=== PATIENT | male | born 1950 | race Caucasian/White ===

== ENCOUNTER 2018-07-16 06:14 | Inpatient (IN) | payer OTHER, SELFPAY ==
[2018-07-07 10:41] VITALS: BMI 34.7
[2018-07-16] VITALS (16 sets, daily range): BP systolic 115–158; BP diastolic 62–91; PULSE 61–93; RESP 14–20; TEMP 36.2–37.4; O2SAT 16–97; BMI 34.7
--- NOTE | 2018-07-16 06:00 | DI.RAD.S_ITS ---
PROCEDURE: XR KNEE RT 1TO2V INDICATIONS: post op right TKA TECHNIQUE: 2 view(s) of the knee acquired. COMPARISON: [facility], , KNEE 1-2 VIEWS LEFT, 06/03/2016, 14:38. FINDINGS: Bones: Patient is status post knee joint arthroplasty. Hardware components are in expected positions. Visualized bony structures are intact. Soft tissues: Overlying postoperative changes are noted. IMPRESSION: Post right total knee arthroplasty changes with anatomic bony alignment. Dictated by: John Beauchamp M.D. on 07/16/2018 at 11:56 Approved by: John Beauchamp M.D. on 07/16/2018 at 11:56
[2018-07-16] MEDS: PREGABALIN 75 MG CAPSULE PO (07:03)
[2018-07-16] MEDS: ACETAMINOPHEN 325 MG TABLET 975 MG PO ×3 (07:03→21:51)
[2018-07-16] MEDS: VANCOMYCIN 1,000 MG/200 ML FROZ.PIGGY 200 MG IV (07:04)
[2018-07-16] MEDS: LACTATED RINGERS 1,000 ML 42 ML IV ×2 (07:04→10:22)
--- NOTE | 2018-07-16 07:36 | PM.PREOP ---
Pre-operative Note Interval Note History & Physical reviewed/Exam performed by Physician: Yes Changes to H&P: No
--- NOTE | 2018-07-16 07:36 | PM.OP.1 ---
Operative Date/Time/Diagnoses Date of procedure: 07/16/18 Time of procedure: 07:59 Pre-op diagnosis: right knee lateral OA, h/o medial uni Post-op diagnosis: same Procedure & Clinicians Procedure: revision right total knee Same procedure as scheduled: Yes Indications: The patient has had progressively worsening right knee pain with radiographic changes consistent with progressive patellofemoral and lateral compartment arthritis with a history of previous unicompartment arthroplasty. Non-operative management has failed and the patient has requested revision total knee replacement. The risks, benefits and alternatives to surgery were discussed with the patient prior to proceeding. Risks discussed included, but were not limited to, failure to relieve pain, stiffness, infection, nerve damage, deep venous thrombosis, pulmonary embolism, stroke, coma, heart attack, permanent paralysis and , as well as the potential need for eventual revision of the prosthetic. Surgeon: Haven Pires Ice Cutter: Salinas Astorga Anesthesia Type: General and Spinal Operative Notes Findings: Severe right knee lateral compartment arthritis and medial compartment arthritis, no evidence of infection or medial compartment arthroplasty loosening Closure Type: primary Specimen(s): none sent Prosthetic devices, grafts, tissues, transplants, or devices: [facility] BCS 2 size 7 femur, size 6 tibia, +11 poly, 38 oval patella Applied: catheter Estimated Blood Loss (mL): 250 Blood products transfused: none Tourniquet time (min): 135 Procedure in detail: The patient was seen in the pre-operative area, where the patient identified the right knee as the operative site and this was marked with my initials. The patient received pre-operative antibiotics, and was taken to the operating room and placed on the operative table in the supine position. After satisfactory anesthesia, a time study engineer out was performed. The right leg was encircled with a tourniquet about the proximal thigh, and the leg was prepared from the toes to the tourniquet with ChloroPrep in the usual fashion and draped through sterile drapes. The leg was elevated and exsanguinated with Eschmark bandage and the tourniquet inflated to [250] mmHg pressure. The knee was approached through an approximately 20 cm incision centered over the patella and carried into the knee through a medial parapatellar arthrotomy. A portion of the medial scar and lateral meniscus was resected. Soft tissue was carefully mobilized around the patella the patella was measured with a caliper. Bone was resected from the patella and the patellar height was reconstituted with up an appropriate sized patellar component. An oval patella was selected. A cover was then placed on the patella. A small amount of additional medial scar and lateral meniscus was resected. The distal femur was cut at 5?. A [+2] cut was used. It looked like an appropriate distal femoral cut. The femoral medial compartment arthroplasty was then carefully removed without difficulty. Combination of the TPS and small knee revision chisels were used to remove the component with minimal bone loss. Intraoperative cultures of the synovium, distal femur and deep femur were sent to the lab for culture and sensitivity. An extramedullary guide was used for the tibial cut. 11 mm was resected off the lateral side. The tibia was prepared. The rotation was assessed. The patient was placed in extension residual medial and lateral meniscus as well as any residual bone was carefully resected. Hemostasis was achieved especially posteriorly. Additional local was injected into the posterior capsule. The extension gap was assessed and additional releases for gap balancing were performed as necessary. It was checked with the gap mainframe systems engineer. The rotation was meticulously assessed and the femur was sized. I check rotation and compensated for some missing posterior bone. The appropriate size femoral guide was placed on the distal femur and finishing cuts were made. There was no evidence of notching. The anterior, posterior and chamfer cuts were then made. The posterior osteophytes and soft tissues were then removed. The posterior capsule was injected with part of a mixture of 60 ml 0.25% Marcaine mixed with 20 ml Exparel for post operative pain control. The remainder of this mixture was injected into the capsule and subcutaneous tissues during cement curing. The tibial and femoral components were then placed and the knee placed through a range of motion. Range of motion was [0-130], with good stability throughout the range. The trials were then removed, and the tibia was finished. A small residual tibial poly fin was removed. The bone was prepared with pulsatile lavage, and dried with a sponge. Cement was applied and the final prosthetics placed. Excess cement was removed during and after cement curing. It was difficult to sublux the tibia anteriorly but was done with anterior translation. A brief Betadine soak was performed. After confirming there was no extruded cement posteriorly, the final tibial insert was placed. An 11 poly showed full rom and good stability. The knee was copiously irrigated and the tourniquet deflated. Hemostasis was obtained with the [Aquamantys system]. A drain was placed and brought out superolaterally. The capsule was closed with interrupted nonabsorbable suture. The subcutaneous layer was closed with barbed sutures, and the skin with a running 3-0 V-Lock suture and Surgical glue. An Aquacel Ag dressing was applied and the patient was taken to recovery having tolerated the procedure well. Complications: none Condition: stable Disposition: Acute Care Plan for aftercare: The patient will be maintained on a standard total knee replacement protocol with weight bearing as tolerated. The patient will receive Aspirin and sequential compression devices for DVT prophylaxis. The patient will be discharged home when safe for the home environment.
[2018-07-16] MEDS: CELECOXIB 200 MG CAPSULE PO (07:38)
[2018-07-16] MEDS: CEFAZOLIN 2 GM/100 ML FROZ.PIGGY IV ×3 (08:00→23:57)
[2018-07-16] MEDS: TRANEXAMIC ACID 1,000 MG VIAL 2000 MG INJ ×2 (08:16→10:43)
--- NOTE | 2018-07-16 08:35 | SUR.OPER ---
Supine on padded OR bed. Pillow under head, arms secured on padded armboards <90 degree abduction. Safety belt across torso. Non-operative leg secured with tape over blanket over lower leg. Operative leg secured in DeMayo/Ronnell positioner. Foam padded brace at thigh of operative leg.
[2018-07-16] MEDS: BUPIVACAINE LIPOSOME 266 MG/20 ML VIAL INJ (09:03)
[2018-07-16] MEDS: BUPIVACAINE 0.25% W/ EPI 30 ML VIAL 60 ML INJ (09:03)
[2018-07-16] MEDS: POVIDONE-IODINE 15 ML, SODIUM CHLORIDE 0.9% 250 ML TOP (09:04)
[2018-07-16] MEDS: LACTATED RINGERS 1,000 ML 125 ML IV ×2 (12:52→22:00)
--- NOTE | 2018-07-16 14:03 | PT.IIE ---
Current Diagnoses Unilateral primary osteoarthritis, right knee (07/16/18) Pain due to internal orthopedic prosthetic devices, implants and grafts, initial encounter (07/16/18) Surgery Performed Operation Date: 07/16/18 07:45 Actual Procedures p Uni medial to Total knee replacement,femoral & entire tibial component(Right) - Haven Pires MD Surgical History (Last Updated 07/07/18 @ 11:02 by Sara Raymundo RN) H/O vasectomy (Acute) History of arthroplasty of left knee (Acute 06/03/16) History of arthroplasty of right knee (Acute) History of carpal tunnel release (Acute) History of colonoscopy (Acute) History of hydrocelectomy (Acute) Hx of transurethral resection of prostate (Acute) S/P cervical spinal fusion (Acute ~07/2012) S/P trigger finger release (Acute) Status post repair of hydrocele (Acute) Medical History (Last Updated 07/07/18 @ 11:02 by Sara Raymundo RN) Arthritis (Acute) BPH (benign prostatic hyperplasia) (Acute) Chronic neck and back pain (Acute) Diabetes mellitus, type II (Acute) Diverticulitis (Acute) Erectile dysfunction (Acute) Former smoker (Acute) HLD (hyperlipidemia) (Acute) NOME (hard of hearing) (Acute) HTN (hypertension) (Acute) Impaired vision (Acute) Persistent headaches (Acute) Prostatitis (Acute) RBBB (right bundle branch block) (Acute) Tinnitus (Acute) Physical Therapy Inpatient Evaluation/Re-Eval M1 PT/OT-IP Prior Functional Status Start: 07/16/18 15:18 Freq: NEEDED Status: Active Protocol: Document 07/16/18 14:03 AB (Rec: 07/16/18 15:32 AB [id number]) Medical Review Prior Functional Status Medical History Reviewed Yes Communication pt able to make needs known Mobility and Gait pt stated that he is independent with all mobilities and ambulation without AD but uses a SPC for long distance ambulation Social History Household Members spouse Living Arrangements House Number of Floors (Floors) One Floor Number of Stairs To Enter/Railing? 1 step to enter 1 step to the sunken living room Home Environment High Toilet Walk in Shower Built-In Shower Seat Home Equipment Front Wheel Walker Four Wheel Walker Straight Cane Manual Wheelchair Hand Held Shower Grab Bars In Shower Employment Status Retired Additional Social History Comment 20 y/o grand daughter will stay with pt to assist him while spouse is off at work pt has a adjustable bed M2 PT-IP Current Condition Start: 07/16/18 15:18 Freq: NEEDED Status: Active Protocol: Document 07/16/18 14:03 AB (Rec: 07/16/18 15:32 AB [id number]) Physical Therapy Current Condition Current Condition Evaluation Date 07/16/18 Treatment Diagnosis s/p R TKA revision; difficulty in walking Onset Date 07/16/18 Weight Bearing Status Weight Bearing Status Weight Bear as Tolerated M3 PT-IP Subjective Start: 07/16/18 15:18 Freq: NEEDED Status: Active Protocol: Document 07/16/18 14:03 AB (Rec: 07/16/18 15:32 AB [id number]) Subjective Physical Therapy Visit Type Type Initial Evaluation Visit Start Time 14:03 Visit Stop Time 14:42 Total Visit Minutes 39 Number of SUPERVISOR GARAGE Visits 0 Physical Therapy Visit Comments Patient Comments pt agreed to do PT Therapy Pain Assessment Pain Present Pain Present Denied Pain M4 PT-IP Mobility and Gait Start: 07/16/18 15:18 Freq: NEEDED Status: Active Protocol: Document 07/16/18 14:03 AB (Rec: 07/16/18 15:32 AB [id number]) PT-Bed Mobility Assessment Supine to Sit Supine to Sit Standby Assistance Head of Bed Elevated Sit to Supine Sit to Supine Standby Assistance Head of Bed Elevated Scooting Scooting to Edge of Bed Standby Assistance PT-Transfer Assessment Sit to and From Stand Sit to and from Stand Contact Guard Assistance 1 Person Assistance Equipment Transfer Assistive Device Gait Belt Front Wheeled Walker Orthotic/Prosthetic Devices or Brace: No Comments Mobility Comments pt wanted to urinate but does not want to walk all the way to the toilet. completed sit to stand from EOB CGA and was able to maintain standing CGA while using urinal. Gait Assessment Gait Gait Assistance Required: Contact Guard Assist Distance (Feet) 20 Able to Maintain Weight Bearing Status Yes During Gait Assistive Devices Assistive Device Gait Belt Front Wheeled Walker Orthotic/Prosthetic Devices or Brace: No Gait Deviations General Gait Pattern Antalgic Decreased Stride Length Decreased Feet Clearance Factors Limiting Gait Function Factors Limiting Gait Function Decreased Activity Tolerance Decreased Sensation Decreased Strength Limited Range of Motion Pain Poor Balance Poor Safety Awareness Comments Gait Comments pt ambulated 20+5 ft using FWW CGA and cues. c/o dizziness and increase sweating. BP 138 /66 PT-Balance Assessment Sitting Balance and Reactions Static Sitting Balance Ability Good Dynamic Sitting Balance Ability Good Standing Balance and Reactions Static Standing Balance Ability Fair Dynamic Standing Balance Ability Fair Device Used FWW M5 PT-IP Objective Assessments Start: 07/16/18 15:18 Freq: NEEDED Status: Active Protocol: Document 07/16/18 14:03 AB (Rec: 07/16/18 15:32 AB [id number]) Orientation Orientation/Cognition Level of Alertness Alert Orientation Name Situation Language Function Ability No Deficits Noted Gross Range of Motion Lower Extremity ROM Impairments R knee flexion: ~ 90 deg Strength Lower Extremity Strength Assessment Right Impaired Hip 4-/5 Knee 3+/5 Coordination Assessment Gross Coordination Gross Coordination WNL Sensation Assessment Sensation Sensation Description Numbness Comments Sensation Comments c/o RLE numbness but able to control LE Muscle Tone Muscle Tone WNL Yes M6 PT-IP Treatment Start: 07/16/18 15:18 Freq: NEEDED Status: Active Protocol: Document 07/16/18 14:03 AB (Rec: 07/16/18 15:32 AB [id number]) Physical Therapy Treatment Exercises Exercises Heel Slides Education Education Provided Precautions M7 PT-IP Assessment and Plan Start: 07/16/18 15:18 Freq: NEEDED Status: Active Protocol: Document 07/16/18 14:03 AB (Rec: 07/16/18 15:32 AB [id number]) PT Summary Assessment and Plan Potential Rehabilitation Potential Good Status of Condition at Evaluation Stable Summary Impairments Pain ROM Strength Balance Coordination Sensation Bed Mobility Transfers Gait Activity Tolerance Assessment Summary pt requiring CGA with mobility but unable to tolerate much activity today. pt plans to go home with spouse to assist. will conduct caregiver training when appropriate and stair training. Goals Bed Mobility Goal Independent Transfer Goal Standby Assistance Front Wheeled Walker Gait Goal Independent Standby Assistance Front Wheel Walker Gait Distance 200 Other Goals up/down 1 step using FWW SBA Days to Meet Goals 3 Frequency of Treatment Frequency Of Treatment Twice a Day Treatment Plan Physical Therapy Treatment Plan Bed Mobility Training Transfer Training Gait Training Therapeutic Exercise Balance Retraining Post Op Education Discharge Planning Hot or Cold Pack Neuromuscular Re-ed Coordination Retraining Manual Therapy Recommendations To Nursing Amount of Assist Needed 1 Person Assist Discharge Recommendations PT Discharge Recommendations Home with Assistance Outpatient PT
[2018-07-16] MEDS: hydrOXYzine pamoate 25 MG CAPSULE PO (14:53)
[2018-07-16] MEDS: ONDANSETRON 4 MG/2 ML INJ IV (17:45)
[2018-07-16] MEDS: NALOXONE 0.4 MG/ML VIAL IV (18:13)
[2018-07-16] MEDS: DOCUSATE 100 MG CAPSULE PO (21:51)
[2018-07-16] MEDS: ASPIRIN EC 81 MG TABLET PO (21:51)
[2018-07-16] MEDS: METFORMIN XR 500 MG TABLET 1000 MG PO (21:51)
[2018-07-17 04:49] VITALS: BP 115/71; PULSE 76; RESP 18; TEMP 37.4; O2SAT 96
[2018-07-17 05:26] LABS: Hematocrit 36.9 % (41-53); Hemoglobin 12.1 g/dL (13.5-17.5)
--- NOTE | 2018-07-17 05:48 | PC.NURSE ---
Slept most of the shift, denies any pain all shift. Will cont. POC & monitor.
[2018-07-17] MEDS: LACTATED RINGERS 1,000 ML 125 ML IV (06:42)
[2018-07-17 07:24] VITALS: BP 121/63; PULSE 70; RESP 18; TEMP 37.2; O2SAT 96
[2018-07-17] MEDS: DOCUSATE 100 MG CAPSULE PO (09:19)
[2018-07-17] MEDS: GLIMEPIRIDE 2 MG TABLET PO (09:19)
[2018-07-17] MEDS: ASPIRIN EC 81 MG TABLET PO (09:19)
[2018-07-17] MEDS: TAMSULOSIN 0.4 MG CAPSULE PO (09:19)
[2018-07-17] MEDS: METFORMIN XR 500 MG TABLET 1000 MG PO (09:19)
[2018-07-17] MEDS: LOSARTAN 25 MG TABLET 50 MG PO (09:19)
[2018-07-17] MEDS: hydroCHLOROthiazide 12.5 MG CAPSULE PO (09:19)
[2018-07-17] MEDS: ACETAMINOPHEN 325 MG TABLET 975 MG PO ×2 (09:20→14:39)
--- NOTE | 2018-07-17 09:35 | PC.NURSE ---
Addendum entered by Katie Walsh R.N. 07/17/18 12:40: bladder scanned pt. Pre-void 222ml, post void bladder scan resulted with 44ml. pt states he feels like his bladder isn't empty, but this isn't a new condition and his urologist is tracking. Addendum entered by Katie Walsh R.N. 07/17/18 12:02: Worked with PT in room and hallway. pt stated his pain increased to a 6-7/10 and refusing Dilaudid. Administered 1 visteril and PA ordered oxycodone. Addendum entered by Katie Walsh R.N. 07/17/18 10:38: pt reporting mild numbness in right toes, PA removed HALEIGH wrap in hopes it will resolve. pt states, It feels like they are trying to wake up and denies issues with balance. pt up to BR SBA with FWW, but unsuccessful in having a BM, only passing gas so far. Original Note: AM Shift pt AO and receptive to care. CBG at 0800 was 159, pt is PO DM medications only with no coverage. Saline locked, hemo vac removed, and Harman removed. Patient tolerated all well. 1000ml in Harman. 25ml in Hemovac. Ample PO fluid intake. Reportin 0-3/10 pain and utilizing Tylenol this shift for pain management. Up SBA with FWW to BR. Passing gas, denying dizziness with mild lightheadedness; which passes with slow repositioning.
--- NOTE | 2018-07-17 10:07 | PM.DS.1 ---
History of Present Illness Date Patient Seen: 07/17/18 Time Patient Seen: 10:07 Chief complaint: [id number] Narrative: HPI in chart Discharge Providers Date of admission: 07/16/18 06:14 Discharge Date: 07/17/18 Primary care physician: REMY Olivier Consults: 07/16/18 06:00 Consult to Anesthesiology Routine Comment: Consulting Provider: Anesthesiologist Reason for consultation: Regional block for post operative pain control 07/16/18 12:26 Consult to Discharge Planning Routine Comment: Consult to Physical Therapy Evaluate & Treat Comment: Physician Instructions: postop TKA protocol Consult to Respiratory Therapy Evaluate & Treat Comment: Physician Instructions: Evaluate and treat Discharge provider: Kristy Mendez PA-C Summary Discharge Diagnosis: s/p revision right total knee arthroplasty Hospital Course: he patient has had progressively worsening right knee pain with radiographic changes consistent with progressive patellofemoral and lateral compartment arthritis with a history of previous unicompartment arthroplasty. Non-operative management has failed and the patient has requested revision total knee replacement. The risks, benefits and alternatives to surgery were discussed with the patient prior to proceeding. Risks discussed included, but were not limited to, failure to relieve pain, stiffness, infection, nerve damage, deep venous thrombosis, pulmonary embolism, stroke, coma, heart attack, permanent paralysis and , as well as the potential need for eventual revision of the prosthetic. He has been doing well on POD#1. Pain has been well controlled. He has ambulated about the room but has not yet worked with PT. Harman catheter was removed this morning and he has yet to void. Prescriptions for oxycodone and vistaril given at time of discharge. He has good support at home. Plan at this time is to discharge to home if he continues to move well with physical therapy and is able to void independently. Status at Discharge Cognitive/behavioral status at discharge: oriented Functional status at discharge: uses cane/walker Overall status at discharge: patient is progressing back to baseline Exam Vital Signs (past 8 hours): - 07/17/18 04:49 07/17/18 07:24 Temperature 99.3 F 99.0 F Pulse Rate 76 70 Respiratory Rate 18 18 Blood Pressure 115/71 121/63 Pulse Oximetry 96 96 Oxygen Delivery Method Nasal Cannula Oxygen Flow Rate 0 Narrative Exam Narrative: 67 year old male resting comfortably in bed. Alert and oriented in no acute distress. Dressing in place is clean, dry, and intact. Small area of drainage at base of incision. Neurovascularly intact in distal extremity with soft compressible calves. Objective Labs Result Diagrams: 07/17/18 05:10 Labs: Laboratory Results - last 24 hr 07/17/18 05:10 Hgb 12.1 L Hct 36.9 L Discharge Plan Discharge Plan Patient Disposition: Home Discharge comment: Discharge to home if cleared by PT and able to void Discharge Med Rec/Prescriptions Prescriptions: New acetaminophen 325 mg Tablet 975 mg PO TID Qty: 60 RF: 0 aspirin 81 mg Tablet,Delayed Release (Dr/Ec) 81 mg PO BID Qty: 60 RF: 0 oxycodone 5 mg Tablet 5 mg PO Q4-6H PRN (Reason: Pain, Moderate (4-6)) Qty: 30 RF: 0 hydroxyzine pamoate 25 mg Capsule 25 mg PO Q4HR PRN (Reason: Itching) Qty: 30 RF: 0 Continued losartan 25 MG tablet 50 mg PO QDAY Qty: 0 RF: 0 lovastatin 40 MG tablet 40 mg PO QPM Qty: 0 RF: 0 hydrochlorothiazide 25 MG tablet 12.5 mg PO QDAY Qty: 0 RF: 0 metformin [Glucophage XR] 500 MG tablet extended release 24 hr 1,000 mg PO BID Qty: 0 RF: 0 glimepiride 2 MG tablet 2 mg PO DAILY Qty: 0 RF: 0 tamsulosin [Flomax] 0.4 MG capsule,extended release 24hr 0.4 mg PO QDAY Qty: 0 RF: 0 aspirin 81 MG tablet,delayed release (DR/EC) 81 mg PO DAILY RF: 0 sildenafil [Viagra] 100 mg Tablet 100 mg PO DAILY PRN (Reason: Sexual Activity) RF: 0 Follow up/Referrals: Karishma Swartz ARNP [Primary Care Provider] - Haven Pires MD [Physician] - Provider Discharge Instructions Diet: Diet as Tolerated Activity: Weight bear as tolerated. Use walker for support. Recommend frequent short walks and ankle pumps. Cold/Heat Therapy: Ice packs as needed. Skin/Wound/Dressing Care Report to your healthcare provider any signs of infection, such as:: chills, fever, unusual drainage and unusual redness Dressing: Leave dressing in place. Will be removed at 2 week post operative visit. Visit Report/Discharge Packet Instructions: DI for Knee Replacement Discharge Data Primary Care Provider: Karishma Swartz Attending Provider: Haven Pires Admit Date/Time: 07/16/18 06:14
--- NOTE | 2018-07-17 11:10 | PT.IPTN ---
Current Diagnoses Unilateral primary osteoarthritis, right knee (07/16/18) Pain due to internal orthopedic prosthetic devices, implants and grafts, initial encounter (07/16/18) Surgery Performed Operation Date: 07/16/18 07:45 Actual Procedures p Uni medial to Total knee replacement,femoral & entire tibial component(Right) - Haven Pires MD Physical Therapy Treatment Note M2 PT-IP Current Condition Start: 07/16/18 15:18 Freq: NEEDED Status: Active Protocol: Document 07/16/18 14:03 AB (Rec: 07/16/18 15:32 AB [id number]) Physical Therapy Current Condition Current Condition Evaluation Date 07/16/18 Treatment Diagnosis s/p R TKA revision; difficulty in walking Onset Date 07/16/18 Weight Bearing Status Weight Bearing Status Weight Bear as Tolerated M3 PT-IP Subjective Start: 07/16/18 15:18 Freq: NEEDED Status: Active Protocol: Document 07/17/18 11:10 AB (Rec: 07/17/18 13:08 AB [email or web address]) Subjective Physical Therapy Visit Type Type Treatment Note Visit Start Time 11:10 Visit Stop Time 11:39 Total Visit Minutes 29 Number of MACHINING TECHNICIAN Visits 0 Physical Therapy Visit Comments Patient Comments pt agreeable to do PT Therapy Pain Assessment Pain When Pain Assessed At Rest Pain Present Pain Present Pain Reported Location Right Knee Intensity 3 Scale Used increased to 8/10 with movement Pain Management Techniques Apply Cold Re-positioning M4 PT-IP Mobility and Gait Start: 07/16/18 15:18 Freq: NEEDED Status: Active Protocol: Document 07/17/18 11:10 AB (Rec: 07/17/18 13:08 AB [email or web address]) PT-Bed Mobility Assessment Supine to Sit Supine to Sit Standby Assistance Scooting Scooting to Edge of Bed Standby Assistance PT-Transfer Assessment Sit to and From Stand Sit to and from Stand Standby Assistance Equipment Transfer Assistive Device Gait Belt Front Wheeled Walker Orthotic/Prosthetic Devices or Brace: No Transfers Transfer Destination Chair Transfer Technique pt ambulated using FWW Transfer Ability Level of Assist Standby Assistance Gait Assessment Gait Gait Assistance Required: Standby Assistance Distance (Feet) 225 Able to Maintain Weight Bearing Status Yes During Gait Assistive Devices Assistive Device Gait Belt Front Wheeled Walker Orthotic/Prosthetic Devices or Brace: No Gait Deviations General Gait Pattern Antalgic Decreased Stride Length Decreased Feet Clearance Factors Limiting Gait Function Factors Limiting Gait Function Decreased Activity Tolerance Decreased Strength Limited Range of Motion Pain Poor Balance Stair Climbing Assessment Evaluation Level of Assist On Stairs Contact Guard Assistance 1 Person Assistance Devices Stair Climbing Assistive Devices Front Wheel Walker Technique/Endurance Stair Climbing Direction Ascend and Descend Stair Climbing Technique Step to Step Number of Steps Climbed 1 Query Text: Stair Climbing Set # Repetitions (reps) 2 Comments Stair Climbing Comments pt completed up/down platform step using FWW CGA M5 PT-IP Objective Assessments Start: 07/16/18 15:18 Freq: NEEDED Status: Active Protocol: Document 07/16/18 14:03 AB (Rec: 07/16/18 15:32 AB [id number]) Orientation Orientation/Cognition Level of Alertness Alert Orientation Name Situation Language Function Ability No Deficits Noted Gross Range of Motion Lower Extremity ROM Impairments R knee flexion: ~ 90 deg Strength Lower Extremity Strength Assessment Right Impaired Hip 4-/5 Knee 3+/5 Coordination Assessment Gross Coordination Gross Coordination WNL Sensation Assessment Sensation Sensation Description Numbness Comments Sensation Comments c/o RLE numbness but able to control LE Muscle Tone Muscle Tone WNL Yes M6 PT-IP Treatment Start: 07/16/18 15:18 Freq: NEEDED Status: Active Protocol: Document 07/17/18 11:10 AB (Rec: 07/17/18 13:08 AB [email or web address]) Physical Therapy Treatment Exercises Exercises Heel Slides Education Education Provided Precautions Safety M7 PT-IP Assessment and Plan Start: 07/16/18 15:18 Freq: NEEDED Status: Active Protocol: Document 07/17/18 11:10 AB (Rec: 07/17/18 13:08 AB [email or web address]) PT Summary Assessment and Plan Potential Rehabilitation Potential Good Summary Impairments Pain ROM Strength Balance Coordination Sensation Bed Mobility Transfers Gait Activity Tolerance Progress Towards Goals Progressing Toward Goals Assessment Summary pt doing well with mobility. pt plans to go home and his spouse will assist him at home . pt also has outpt PT set up . Goals Bed Mobility Goal Independent Transfer Goal Standby Assistance Front Wheeled Walker Gait Goal Independent Standby Assistance Front Wheel Walker Gait Distance 200 Other Goals up/down 1 step using FWW SBA Days to Meet Goals 3 Treatment Plan Physical Therapy Treatment Plan Bed Mobility Training Transfer Training Gait Training Therapeutic Exercise Balance Retraining Post Op Education Discharge Planning Hot or Cold Pack Neuromuscular Re-ed Coordination Retraining Manual Therapy Recommendations To Nursing Amount of Assist Needed 1 Person Assist Discharge Recommendations PT Discharge Recommendations Home with Assistance Outpatient PT
[2018-07-17] MEDS: hydrOXYzine pamoate 25 MG CAPSULE PO (11:49)
[2018-07-17] MEDS: OXYCODONE IR 5 MG TABLET PO (12:42)
--- NOTE | 2018-07-17 15:28 | CM.DANOTE ---
Patient is a 67 year old male who was admitted on 07/16/18 for Total Knee Revision. Pt has [facility] for insurance and his PCP is Dr. Swartz. EMR was reviewed. Per Ortho MD, pt tolerated procedure well and per Ortho PA pt is stable for d/c home today. Per PT, recommending home with family assist and outpt PT already set up. SW met bedside with pt and explained role and pt confirmed that he lives at home in [place] [place] with his and has local family support. Pt is Independent with ADL's at baseline and drives and does not typically use equipment to ambulate. Pt denies any HH or SNF and has had multiple knee surgeries and is aware of his precautions. Pt states that his has the weekend off from work and plans to assist him at d/c and his Dtr and granddtr are available for assist once his goes to work on Mon and pt has outpt PT already set up. Pt preference is to return home today via family POV and does not anticipate any d/c needs. Plan: Patient to d/c home today via family POV around 1600 and outpt PT set up. No SW needs at this time. NATALIIA Frost Discharge Planning/Care Management Advanced directive, confirm from FAMILY Start: 07/16/18 12:32 Freq: Q24H Status: Active Protocol: Document 07/16/18 15:00 LDV (Rec: 07/16/18 17:21 LDV [id number]) Advance Directive, confirm on record Time 17:00 Person contacted pt Copy received No CM Discharge Assessment Start: 07/17/18 15:26 Freq: Status: Active Protocol: Document 07/17/18 15:26 BF (Rec: 07/17/18 15:28 BF [id number]) Discharge Planning Assessment Assigned Assistant Director Of Plant Operations NATALIIA Briceno Advance Directives? Yes History Provided By Patient Medical Record Has Patient been admitted in last 30 No days? Prior Living Arrangements House Household Members spouse Type of transporation used prior to Drives own vehicle admit Independent with ADL's Yes Is patient alert and oriented? Yes Caregiver for Another No Comment Home Barriers to Discharge No Discharge Plan Home Community Services Physical Therapy Transportation Arrangement Spouse or Dtr to provide transport this evening Referrals Initiated None needed Whiteboard Updated in Patient Room with Yes name and ext. # of Assistant Director Of Plant Operations Review Status In Process Please Provide Date Initial DC 07/17/18 Assessment Was Performed Next Review Type Continued Stay Review Pre-Anesthesia Assessment Start: 07/07/18 10:41 Freq: Status: Active Protocol: Document 07/07/18 10:41 CAB (Rec: 07/07/18 11:34 CAB [id number]) Pre-Anesthesia Assessment PAC Comment Pt has concerns with positioning r/t 4 level cervical fusion Patient Also Known As (AKMarcin) Matt Patient Information Reviewed Via Phone Assessment Assessment Completed With Patient Diagnostic Results BMP/CMP CBC EKG Urinalysis Comment Outside labs/EKG 05/21/18 scanned to record Primary Care Provider Jacinta Loja Medical Clearance Received Yes Seen Specialist in Last 12 Months Yes Specialist Seen Orthopedist Urologist Comment PCP pre-op/clearance scanned to record Primary Language Turkish Account Services Manager Required No Height 172.72 cm Weight 103.419 kg Body Mass Index (BMI) 34.7 Hearing Ability Hard of Hearing Visual Assist Glasses Dentition Type Teeth, Natural Present Teeth, Missing Barriers to Learning Auditory Other Aids No Hx Anesthesia Reactions Yes: Combative, severe confusion w/LT TKA 06/03/16 Hx Family Anesthesia Reaction No Hx Malignant Hyperthermia No Hx Blood Transfusions No Anesthesia Review Requested No Water Purifier No alcohol intake current alcohol intake frequency a few times a month Smoking Status Former smoker how long ago did patient quit smoking Quit 1996 Substance Use Type does not use Pain Present Pain Reported Musculoskeletal Symptoms Abnormal Gait Back Pain Difficulty Walking Joint Pain Muscle Spasms Neck Pain Numbness Tingling History of Falling (Recent or History of No ) Patient is completely paralyzed or No completely immobile Prosthesis or Orthotic Device Cane Mental Status Oriented to own ability Is patient on oxygen? No Does patient have SOLORZANO/SOB No Hx Sleep Apnea No Currently Taking a Beta Katie No Can You Climb a Flight of Stairs Without Yes SOB Hx Chest Pain No Hx SOB No Hx Syncope or Dizziness No Anti-Coagulant Therapy No Has a Garden Labourer No Cardiac Testing No Hx Pacemaker/ICD No Pacemaker Rep Required? No Cardiac Clearance Received Not Applicable Diet Type At Home Regular dysphagia Yes: Occasional r/t food getting stuck Genitourinary Symptoms Dribbling Bladder Pattern Incontinent, Stress Nocturia Urinary Catheter Present No Hx Urinary Self Catheterization No Diabetes Yes HgbA1C 7.3 Date 05/21/18 Hx Drug Resistant Organism No Presence of External or Internal Medical Yes: Cervical, bilateral knee Devices prosthesis Have you traveled outside the [place] in the last 30 days? Comment Yoel travel 06/27/18- Marital Status Lives With spouse Prior Living Arrangements House Number of Floors (Floors) One Floor Support System Family Spouse Does the Patient Have Assistance After Yes Surgery Patient Discharge Plan Description Return Home Comment Pt not advised on length of stay per surgeon's office Feels Safe in Current Environment Yes Been Physically Hurt or Threatened By a No Person in Current Environment Do you have thoughts of harming yourself None or others? Are you currently considering suicide? No Do you have a plan to hurt yourself or No Plan others? Do You Have Any Spiritual Beliefs That No May Affect Your HC Choices? Do You Have Any Cultural Practices That No May Affect Your HC Choices? Who Can We Speak to About Patient's Care Family, friends Identifying Code for Release of Patient Declines to issue Information Health Care Proxy/Next of Kin Claudia () Health Care Proxy , Emergency Contact Name Claudia () Emergency Contact , Advance Directives? No: Declines further information Power of Financial Recruiter No PAC Instructions Durable medical equipment Medications to take/avoid Nasal antibiotic No ETOH/petroleum product on skin DOS NPO Post-op transportation Pre-surgical wash Sturdy shoes/comfortable clothes Do not bring valuables and remove jewelry
== END 2018-07-17 15:59 | disposition home or self-care (01) | DRG 468 ==
PROVIDERS: Admitting Provider Orthopaedic Surgery; PCP Nurse Practitioner Family; Visit Provider Orthopaedic Surgery
PROC: 0SPC0JZ Removal of Synthetic Substitute from Right Knee Joint, Open Approach (ICD-10-PCS; principal; 2018-07-16 07:45)
DX: M17.11 Unilateral primary osteoarthritis, right knee (principal); I10 Essential (primary) hypertension; E11.9 Type 2 diabetes mellitus without complications; Z79.84 Long term (current) use of oral hypoglycemic drugs; Z87.891 Personal history of nicotine dependence; Z96.652 Presence of left artificial knee joint
CPT/HCPCS: 36415; 73560; 82962; 85014; 85018; 87070; 87075; 87205; 94762; 97116; 97161; 97530; C1776; C9290; J0690; J1100; J2250; J2274; J2310; J2405; J2704; J3010; J3370

== ENCOUNTER → 2020-12-13 14:04 | Outpatient (CLI) | payer OTHER, SELFPAY ==
[2018-07-16 12:29] VITALS: BMI 34.7
--- NOTE | 2020-12-13 14:20 | DI.CT.S_ITS ---
PROCEDURE: CT CERVICAL SPINE WO CON INDICATIONS: Cervical myeloradiculopathy status post fusion TECHNIQUE: Noncontrast 3 mm thick sections acquired from the skull base to the T4 level. Sagittal and coronal reformats were then constructed. For radiation dose reduction, the following was used: automated exposure control, adjustment of mA and/or kV according to patient size. COMPARISON: [facility], CR, XR CERVICAL SPINE FLEXION EXTENSION 3 VIEWS, 10/21/2019, 9:19. [facility], CT, C-SPINE W/O CONTRAST, 03/01/2013, 13:01. [facility], MR, CERVICAL SPINE W/O CONTRAST, 03/02/2012, 18:05. [facility], MR, CERVICAL SPINE W/O CONTRAST, 11/26/2010, 18:27. [facility], , CERVICAL SPINE W/O CONTRAST, 06/05/2009, 17:27. FINDINGS: Image quality: Excellent. Bones: No fractures or dislocations. Visualized superior ribs are intact. Extensive postoperative hardware can be seen, with anterior and right posterior hardware at C3 through C7. The right posterior C3 screw is medially located, yet stable. Disc spacers are seen at C3-C4, C4-C5, C5-C6, and C6-C7. No findings of hardware failure or hardware loosening are seen. There is moderate to severe disc space narrowing seen within the C7-T1 level as well as the upper thoracic spine. Soft tissues: Prevertebral soft tissues are normal in thickness. No paravertebral hematomas. No apical pneumothoraces. IMPRESSION: Stable postoperative hardware. Focal degenerative change seen with at C7-T1 and within the upper thoracic spine, which has progressed compared to the 2014 CT examination. Dictated by: Benjie Raygoza M.D. on 12/13/2020 at 13:56 Approved by: Benjie Raygoza M.D. on 12/13/2020 at 13:59
== END ==
PROVIDERS: PCP Nurse Practitioner Family; Referring Provider Physical Medicine & Rehabilitation; Visit Provider Physical Medicine & Rehabilitation
DX: M47.13 Other spondylosis with myelopathy, cervicothoracic region (principal); M47.23 Other spondylosis with radiculopathy, cervicothoracic region; Z98.1 Arthrodesis status
CPT/HCPCS: 72125

== ENCOUNTER → 2021-10-03 13:45 | Outpatient (CLI) | payer OTHER, SELFPAY ==
[2018-07-16 12:29] VITALS: BMI 34.7
--- NOTE | 2021-10-03 13:46 | DI.RAD.S_ITS ---
PROCEDURE: XR SHOULDER RT MIN 2V INDICATIONS: right shoulder pain TECHNIQUE: 3 views of the shoulder were acquired. COMPARISON: None. FINDINGS: Bones: No fractures or dislocations. No suspicious bony lesions. Visualized ribs appear intact. Degenerative glenohumeral joint space narrowing. Cervical spine instrumentation noted. No dislocation. Soft tissues: No suspicious soft tissue calcifications. IMPRESSION: Degenerative changes without fracture or dislocation Approved by: Primo Beaver M.D. on 10/03/2021 at 13:37
== END ==
PROVIDERS: PCP Nurse Practitioner Family; Referring Provider Physical Medicine & Rehabilitation; Visit Provider Physical Medicine & Rehabilitation
DX: M75.41 Impingement syndrome of right shoulder (principal); M54.12 Radiculopathy, cervical region; M19.012 Primary osteoarthritis, left shoulder; Z98.1 Arthrodesis status; Z98.890 Other specified postprocedural states
CPT/HCPCS: 73030; 99214

== ENCOUNTER 2021-11-22 08:53 | Outpatient (CLI) | payer OTHER, SELFPAY ==
[2018-07-16 12:29] VITALS: BMI 34.7
[2021-11-22] VITALS (9 sets, daily range): BP systolic 123–177; BP diastolic 68–79; PULSE 68–74; RESP 10–19; TEMP 36.2; O2SAT 97–100
--- NOTE | 2021-11-22 | DI.RAD.S_ITS ---
PROCEDURE: PAIN C/T INTERLAMINAR INJECT INDICATIONS: Radiculopathy, cervical region COMPARISON: None. FINDINGS: Fluoroscopic spot filming was performed to verify placement of spinal needles near the C7-T1 level(s), as labeled on the films. Appropriate location(s) of the needle tip(s) was confirmed by injection of iodinated contrast. IMPRESSION: Fluoroscopic guidance Approved by: Primo Beaver M.D. on 11/22/2021 at 16:32
[2021-11-22] MEDS: MIDAZOLAM 2 MG/2 ML VIAL 1 MG IV (10:25)
[2021-11-22] MEDS: BUPIVACAINE 0.25% (PF) VIAL 2 ML INJ (10:27)
[2021-11-22] MEDS: IOPAMIDOL 15 ML VIAL 3 ML INJ (10:27)
[2021-11-22] MEDS: DEXAMETHASONE 10 MG/ML VIAL 30 MG INJ (10:28)
--- NOTE | 2021-11-22 10:41 | P.PCN_ITS ---
Date/Time/Diagnoses Date of procedure: 11/22/21 Time of procedure: 10:41 Pre-procedure diagnosis: 1. CERVICAL STENOSIS, 2. CERVICAL HNP WITH UPPER EXTREMITY RADICULAR FEATURES Procedure Notes Procedure: FLUORSCOPICALLY GUIDED CONTRAST CONTROLLED INTERLAMINAR EPIDURAL STEROID INJECTION - C7/T1 TL FARZANA Indications: Boyd is referred by REMY Swartz for treatment of Cervical Stenosis. Physician: Jared Hawley Total Fluoroscopy time (seconds): 26 Total sedation minutes: 12 Complications: none Procedure in detail & Post-procedure care: DESCRIPTION OF PROCEDURE Following review of allergy and review of potential side effects and complications, including, but not necessarily limited to, infection, allergic reaction, local tissue breakdown, temporary as well as permanent nerve injury, stroke, paralysis, and possible , the patient indicated that patient understood and agreed to proceed. An informed consent document was signed by the patient, witnessed by a nurse, and placed in the patient's chart. Additionally, other treatment options including modalities, medications, and physical therapy were reviewed with the patient. After review of previous anaesthesic history and IV conscious sedation the patient was deemed safe to proceed with todays procedure with IV conscious sedation as ASA class II designation. Safety time-out was performed to confirm patient ID, procedure to be performed and site of procedure. IV sedation was accomplished with a combination of 1mg of Versed administered by the RN after DO order, titrated to patient comfort during the course of the procedure while the patient remained responsive to all verbal commands. In the prone position, following sterile prep and drape of the cervical region, the C7/T1 translaminar space was identified fluoroscopically. The skin was anesthetized via a 25-gauge 1.5-inch needle with 1% lidocaine solution. At this point, a 25-gauge, 2.5-inch short bevel spinal needle was atraumatically introduced and advanced under fluoroscopic guidance into epidural space at the C7/T1 translaminar space. Depth was confirmed on lateral view. Radiological data, including multiple fluoroscopic views of the cervical spine, reveal a spinal needle at the C7/T1 translaminar space. Lateral views then show placement of the needle in the epidural space. Subsequent views show contrast material flowing superiorly and inferiorly in the epidural space. DSA f luoroscopy with live contrast injection, once again, confirmed no vascular or intrathecal uptake. At this point, using loss of resistance technique with saline and air, the epidural space was entered. Following negative aspiration, injection of approximately 1.5 cc of Isovue-200 with live fluoroscopy in the AP view confirmed epidural flow in the epidural space without vascular or intrathecal u ptake observed. Subsequently, a test dose of 1 cc of 1% lidocaine solution was injected and patient was observed for two minutes without signs or symptoms of complications, including abdominal pain, shortness of breath, bilateral upper or lower extremity weakness, nausea and vomiting, prior to steroid injection. At this point, 3cc or 30mg of dexamethasone was then injected without incident. The patient tolerated the procedure well without signs or symptoms of complications prior to transfer to the recovery area for further monitoring The patient was then transferred to the recovery area where they were observed for an appropriate period of time after the injection. The patient reported a VAS score of 6 prior to the procedure and a post-procedure VAS of 0 POST OP INSTRUCTIONS The patient was provided a Pain Log to continue to record the patient's response to the target-specific procedure prior to the patient's follow-up visit with the referring physician. Additionally, specific post-injection care instructions and a contact number to our office were provided if concerns arise regarding possible complications associated with the procedure are suspected.
== END 2021-11-22 11:20 | disposition home or self-care (01) ==
PROVIDERS: PCP Nurse Practitioner Family; Referring Provider Physical Medicine & Rehabilitation; Visit Provider Physical Medicine & Rehabilitation
DX: M48.02 Spinal stenosis, cervical region (principal); M50.123 Cervical disc disorder at C6-C7 level with radiculopathy
CPT/HCPCS: 62321; 99152; J1100; J2250; J3490

== ENCOUNTER 2022-02-12 08:18 | Outpatient (CLI) | payer OTHER, SELFPAY ==
[2022-01-28 11:27] VITALS: BMI 34.7
[2022-02-12] VITALS (11 sets, daily range): BP systolic 114–131; BP diastolic 57–78; PULSE 70–83; RESP 13–20; TEMP 36.5; O2SAT 95–99
--- NOTE | 2022-02-12 08:21 | DI.RAD.S_ITS ---
PROCEDURE: PAIN C/T INTERLAMINAR INJECT INDICATIONS: SPINAL STENOSIS COMPARISON: [facility], , PAIN C/T INTERLAMINAR INJECT, 11/22/2021, 10:26. FINDINGS: Fluoroscopic spot filming was performed to verify placement of a spinal needle at the C7-T1 level, as labeled on the films. Appropriate location of the needle tip was confirmed by injection of iodinated contrast. Extensive underlying postoperative hardware is seen. IMPRESSION: Intraprocedural examination within normal limits. Dictated by: Benjie Raygoza M.D. on 02/12/2022 at 9:49 Approved by: Benjie Raygoza M.D. on 02/12/2022 at 9:49
[2022-02-12] MEDS: MIDAZOLAM 2 MG/2 ML VIAL IV (10:06)
[2022-02-12] MEDS: IOPAMIDOL 15 ML VIAL 3 ML INJ (10:12)
[2022-02-12] MEDS: DEXAMETHASONE 10 MG/ML VIAL 30 MG INJ (10:12)
[2022-02-12] MEDS: BUPIVACAINE 0.5% MDV 2 ML INJ (10:13)
--- NOTE | 2022-02-12 10:25 | PM.PROC.IR.1 ---
Date/Time/Diagnoses Date of procedure: 02/12/22 Time of procedure: 10:26 Pre-procedure diagnosis: 1. CERVICAL STENOSIS, 2. CERVICAL HNP WITH UPPER EXTREMITY RADICULAR FEATURES Procedure Notes Procedure: FLUORSCOPICALLY GUIDED CONTRAST CONTROLLED INTERLAMINAR EPIDURAL STEROID INJECTION - C7/T1 TL FARZANA Indications: Boyd/ Matt is referred by REMY Swartz for treatment of Cervical Stenosis. Physician: Jared Hawley Total Fluoroscopy time (seconds): 32 Total sedation minutes: 19 Complications: none Procedure in detail & Post-procedure care: DESCRIPTION OF PROCEDURE Following review of allergy and review of potential side effects and complications, including, but not necessarily limited to, infection, allergic reaction, local tissue breakdown, temporary as well as permanent nerve injury, stroke, paralysis, and possible , the patient indicated that patient understood and agreed to proceed. An informed consent document was signed by the patient, witnessed by a nurse, and placed in the patient's chart. Additionally, other treatment options including modalities, medications, and physical therapy were reviewed with the patient. After review of previous anaesthesic history and IV conscious sedation the patient was deemed safe to proceed with todays procedure with IV conscious sedation as ASA class II designation. Safety time-out was performed to confirm patient ID, procedure to be performed and site of procedure. IV sedation was accomplished with a combination of 2mg of Versed administered by the RN after DO order, titrated to patient comfort during the course of the procedure while the patient remained responsive to all verbal commands. In the prone position, following sterile prep and drape of the cervical region, the C7/T1 translaminar space was identified fluoroscopically. The skin was anesthetized via a 25-gauge 1.5-inch needle with 1% lidocaine solution. At this point, a 25-gauge, 2.5-inch short bevel spinal needle was atraumatically introduced and advanced under fluoroscopic guidance into epidural space at the C7/T1 translaminar space. Depth was confirmed on lateral view. Radiological data, including multiple fluoroscopic views of the cervical spine, reveal a spinal needle at the C7/T1 translaminar space. Lateral views then show placement of the needle in the epidural space. Subsequent views show contrast material flowing superiorly and inferiorly in the epidural space. DSA fluoroscopy with live contrast injection, once again, confirmed no vascular or intrathecal uptake. At this point, using loss of resistance technique with saline and air, the epidural space was entered. Following negative aspiration, injection of approximately 1.5 cc of Isovue-200 with live fluoroscopy in the AP view confirmed epidural flow in the epidural space without vascular or intrathecal uptake observed. Subsequently, a test dose of 1 cc of 1% lidocaine solution was injected and patient was observed for two minutes without signs or symptoms of complications, including abdominal pain, shortness of breath, bilateral upper or lower extremity weakness, nausea and vomiting, prior to steroid injection. At this point, 3cc or 30mg of dexamethasone was then injected without incident. The patient tolerated the procedure well without signs or symptoms of complications prior to transfer to the recovery area for further monitoring The patient was then transferred to the recovery area where they were observed for an appropriate period of time after the injection. The patient reported a VAS score of 6 prior to the procedure and a post-procedure VAS of 0 POST OP INSTRUCTIONS The patient was provided a Pain Log to continue to record the patient's response to the target-specific procedure prior to the patient's follow-up visit with the referring physician. Additionally, specific post-injection care instructions and a contact number to our office were provided if concerns arise regarding possible complications associated with the procedure are suspected.
== END 2022-02-12 10:55 | disposition home or self-care (01) ==
PROVIDERS: PCP Nurse Practitioner Family; Referring Provider Physical Medicine & Rehabilitation; Visit Provider Physical Medicine & Rehabilitation
DX: M48.02 Spinal stenosis, cervical region (principal); M50.13 Cervical disc disorder with radiculopathy, cervicothoracic region
CPT/HCPCS: 62321; 99152; J1100; J2250; J3490

== ENCOUNTER 2022-09-19 08:35 | Outpatient (CLI) | payer OTHER, SELFPAY ==
[2022-07-31 13:04] VITALS: BMI 34.7
[2022-09-19] VITALS (7 sets, daily range): BP systolic 121–161; BP diastolic 61–80; PULSE 69–80; RESP 13–20; TEMP 36.6; O2SAT 98–99
--- NOTE | 2022-09-19 08:36 | DI.RAD.S_ITS ---
PROCEDURE: PAIN C/T INTERLAMINAR INJECT INDICATIONS: SPINAL STENOSIS COMPARISON: [facility], , PAIN C/T INTERLAMINAR INJECT, 02/12/2022, 11:08. FINDINGS: Fluoroscopic spot filming was performed to verify placement of spinal needles at the T1-T2 interlaminar level(s), as labeled on the films. Appropriate location(s) of the needle tip(s) was confirmed by injection of iodinated contrast. IMPRESSION: Access needle at the T1-T2 interlaminar space for translaminar epidural steroid injection Dictated by: Padmini Mullen MD, PhD on 09/19/2022 at 13:11 Approved by: Padmini Mullen MD, PhD on 09/19/2022 at 13:11
[2022-09-19] MEDS: MIDAZOLAM 2 MG/2 ML VIAL IV (09:44)
[2022-09-19] MEDS: BUPIVACAINE 0.25% (PF) VIAL 2 ML INJ (09:47)
[2022-09-19] MEDS: IOPAMIDOL 15 ML VIAL 3 ML INJ (09:48)
[2022-09-19] MEDS: DEXAMETHASONE 10 MG/ML VIAL 20 MG INJ (09:48)
--- NOTE | 2022-09-19 10:09 | PM.PROC.IR.1 ---
Date/Time/Diagnoses Date of procedure: 09/19/22 Time of procedure: 10:09 Pre-procedure diagnosis: 1. CERVICAL AND THORACIC STENOSIS S/P FUSION 2. 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 Physician: Jared Hawley Total Fluoroscopy time (seconds): 33 Total sedation minutes: 15 Complications: none Procedure in detail & Post-procedure care: DESCRIPTION OF PROCEDURE Following review of allergy and review of potential side effects and complications, including, but not necessarily limited to, infection, allergic reaction, local tissue breakdown, temporary as well as permanent nerve injury, stroke, paralysis, and possible , the patient indicated that patient understood and agreed to proceed. An informed consent document was signed by the patient, witnessed by a nurse, and placed in the patient's chart. Additionally, other treatment options including modalities, medications, and physical therapy were reviewed with the patient. After review of previous anaesthesic history and IV conscious sedation the patient was deemed safe to proceed with todays procedure with IV conscious sedation as ASA class II designation. Safety time-out was performed to confirm patient ID, procedure to be performed and site of procedure. IV sedation was accomplished with a combination of 2mg of Versed administered by the RN after DO order, titrated to patient comfort during the course of the procedure while the patient remained responsive to all verbal commands. In the prone position, following sterile prep and drape of the cervical region, the T2/3 translaminar space was identified fluoroscopically. The skin was anesthetized via a 25-gauge 1.5-inch needle with 1% lidocaine solution. At this point, a 25-gauge, 2.5-inch short bevel spinal needle was atraumatically introduced and advanced under fluoroscopic guidance into epidural space at the T2/3 translaminar space. Depth was confirmed on lateral view. Radiological data, including multiple fluoroscopic views of the cervical spine, reveal a spinal needle at the T2/3 translaminar space. Lateral views then show placement of the needle in the epidural space. Subsequent views show contrast material flowing superiorly and inferiorly in the epidural space. DSA fluoroscopy with live contrast injection, once again, confirmed no vascular or intrathecal uptake. At this point, using loss of resistance technique with saline and air, the epidural space was entered. Following negative aspiration, injection of approximately 1.5 cc of Isovue-200 with live fluoroscopy in the AP view confirmed epidural flow in the epidural space without vascular or intrathecal uptake observed. Subsequently, a test dose of 1 cc of 1% lidocaine solution was injected and patient was observed for two minutes without signs or symptoms of complications, including abdominal pain, shortness of breath, bilateral upper or lower extremity weakness, nausea and vomiting, prior to steroid injection. At this point, 3cc or 30mg of dexamethasone was then injected without incident. The patient tolerated the procedure well without signs or symptoms of complications prior to transfer to the recovery area for further monitoring The patient was then transferred to the recovery area where they were observed for an appropriate period of time after the injection. The patient reported a VAS score of 7prior to the procedure and a post-procedure VAS of 1 POST OP INSTRUCTIONS The patient was provided a Pain Log to continue to record the patient's response to the target-specific procedure prior to the patient's follow-up visit with the referring physician. Additionally, specific post-injection care instructions and a contact number to our office were provided if concerns arise regarding possible complications associated with the procedure are suspected.
== END 2022-09-19 10:25 | disposition home or self-care (01) ==
PROVIDERS: PCP Nurse Practitioner Family; Referring Provider Physical Medicine & Rehabilitation; Visit Provider Physical Medicine & Rehabilitation
DX: M48.02 Spinal stenosis, cervical region (principal); M50.13 Cervical disc disorder with radiculopathy, cervicothoracic region; M48.04 Spinal stenosis, thoracic region; Z98.1 Arthrodesis status
CPT/HCPCS: 62321; 99152; J1100; J2250; J3490